=== PATIENT | female | born 1985 | race Caucasian/White ===

== ENCOUNTER 2022-04-18 06:48 | Day surgery (SDC) | payer BC ==
[2022-04-18] MEDS ORDERED: Dextrose 5%-Lactated Ringers 1,000 ML IV SCH (07:30)
== END 2022-04-18 10:52 | disposition home or self-care (01) ==
LOC: JP.SDS 06:48
PROVIDERS: ATTEND Surgery
DX: K31.6 Fistula of stomach and duodenum (principal); R63.5 Abnormal weight gain; G47.33 Obstructive sleep apnea (adult) (pediatric); Z93.1 Gastrostomy status; Z79.899 Other long term (current) drug therapy
CPT/HCPCS: 43239; 87081; J7121

== ENCOUNTER 2022-07-31 14:29 | Inpatient (IN) | payer BC ==
[2022-08-04] MEDS ORDERED: Acetaminophen 500 MG Tab PO ONE (07:45)
[2022-08-04] MEDS ORDERED: Scopolamine 1.5 MG Transdermal Patch TOP ONE (07:45)
[2022-08-04] MEDS ORDERED: Celecoxib 200 MG Cap PO ONE (07:45)
[2022-08-04] MEDS ORDERED: Dextrose 5%-Lactated Ringers 1,000 ML IV SCH (08:00)
[2022-08-04] MEDS ORDERED: Naloxone 0.4 MG/ML SDV IV PRN (08:00)
[2022-08-04] MEDS ORDERED: Amphetamine/Dextroamphetamine Salts 10 MG Tab PO ONE (08:45)
[2022-08-04] MEDS ORDERED: Scopolamine 1.5 MG Transdermal Patch TOP SCH (09:00)
[2022-08-04] MEDS ORDERED: cefOXitin 2 GM in Sodium Chloride 0.9% 50 ML IV ONE (09:00)
[2022-08-04] MEDS ORDERED: Ketamine 19 MG in Sodium Chloride 0.9% 19.81 ML IV SCH (09:15)
[2022-08-04] MEDS ORDERED: Ketamine 500 MG/5 ML MDV IV SCH (09:15)
[2022-08-04] MEDS ORDERED: Dexamethasone 4 MG/ML SDV ONE (10:57)
[2022-08-04] MEDS ORDERED: Propofol 200 MG/20 ML SDV ONE (10:57)
[2022-08-04] MEDS ORDERED: Rocuronium 50 MG/5 ML Vial ONE (10:57)
[2022-08-04] MEDS ORDERED: Glycopyrrolate 0.2 MG/ML 5 ML MDV ONE (10:57)
[2022-08-04] MEDS ORDERED: fentaNYL 250 MCG/5 ML SDV ONE (10:57)
[2022-08-04] MEDS ORDERED: Neostigmine Methylsulfate 1 MG/ML 5 ML Syringe ONE (10:57)
[2022-08-04] MEDS ORDERED: Succinylcholine 200 MG/10 ML MDV ONE (10:57)
[2022-08-04] MEDS ORDERED: Ondansetron 4 MG/2 ML SDV ONE (10:57)
[2022-08-04] MEDS ORDERED: Meropenem 500 MG SDV ONE (12:37)
[2022-08-04] MEDS: HYDROmorphone/Normal Saline 6 MG/30 ML PCA Vial IV PRN ×2 (13:56→22:14)
[2022-08-04] MEDS ORDERED: fentaNYL 100 MCG/2 ML SDV ONE (14:53)
[2022-08-04] MEDS ORDERED: hydrOXYzine HCL 100 MG/2 ML SDV IM ONE (15:15)
[2022-08-04] MEDS ORDERED: Metoclopramide 10 MG/2 ML SDV IVPUSH PRN (16:00)
[2022-08-04] MEDS ORDERED: diphenhydrAMINE 50 MG/ML SDV IVPUSH PRN (16:00)
[2022-08-04] MEDS ORDERED: Labetalol 20 MG/4 ML Syringe IVPUSH PRN (16:00)
[2022-08-04] MEDS ORDERED: Ondansetron 4 MG/2 ML SDV IVPUSH PRN (16:00)
[2022-08-04] MEDS ORDERED: hydrOXYzine HCL 100 MG/2 ML SDV IM PRN (16:00)
[2022-08-04] MEDS ORDERED: Acetaminophen 500 MG Tab PO PRN (16:00)
[2022-08-04] MEDS ORDERED: Pantoprazole 40 MG Vial IVPUSH SCH (16:00)
[2022-08-04] MEDS: cefOXitin 2 GM in Sodium Chloride 0.9% 50 ML IV SCH (17:06)
[2022-08-04] MEDS: MVI, Adult with Vitamin K 10 ML, Thiamine 200 MG, Zinc/Copper/Manganese/Selenium 1 ML i... IV SCH ×4 (17:07)
[2022-08-04] MEDS: Acetaminophen 500 MG Tab PO SCH (17:08)
[2022-08-04] MEDS: Heparin Sodium 5,000 Units/ML Vial SUBCUT SCH (17:08)
[2022-08-04] MEDS: Dextrose 5%-Lactated Ringers 1,000 ML IV SCH (22:06)
[2022-08-05] MEDS: cefOXitin 2 GM in Sodium Chloride 0.9% 50 ML IV SCH ×4 (00:21→17:56)
[2022-08-05] MEDS: Acetaminophen 500 MG Tab PO SCH ×3 (00:21→16:03)
[2022-08-05] MEDS ORDERED: Iopamidol 612 MG/ML 50 ML SDV PO STA (00:34)
[2022-08-05] MEDS: Heparin Sodium 5,000 Units/ML Vial SUBCUT SCH ×2 (06:03→17:56)
[2022-08-05] MEDS: Dextrose 5%-Lactated Ringers 1,000 ML IV SCH (06:08)
[2022-08-05] MEDS ORDERED: Dextrose 5%-Lactated Ringers 1,000 ML IV SCH (07:00)
[2022-08-05] MEDS ORDERED: Ondansetron 4 MG Tab.DIS PO PRN (07:00)
[2022-08-05] MEDS: Levothyroxine 100 MCG Tab PO SCH (07:31)
[2022-08-05] MEDS: SCOPOLAMINE PATCH CHECK TOP SCH (08:59)
[2022-08-05] MEDS: Celecoxib 200 MG Cap PO SCH ×2 (08:59→22:30)
[2022-08-05] MEDS: Cyclobenzaprine 10 MG Tab PO PRN ×2 (11:55→22:30)
[2022-08-05] MEDS: Pantoprazole 40 MG Delayed-Release Granules 1 Packet PO SCH (16:03)
[2022-08-05] MEDS: MVI, Adult with Vitamin K 10 ML, Thiamine 200 MG, Zinc/Copper/Manganese/Selenium 1 ML i... IV SCH ×4 (16:03)
[2022-08-05] MEDS: HYDROmorphone/Normal Saline 6 MG/30 ML PCA Vial IV PRN (19:54)
[2022-08-06] MEDS: Acetaminophen 500 MG Tab PO SCH ×4 (00:50→23:51)
[2022-08-06] MEDS: cefOXitin 2 GM in Sodium Chloride 0.9% 50 ML IV SCH (00:51)
[2022-08-06] MEDS: Heparin Sodium 5,000 Units/ML Vial SUBCUT SCH ×2 (06:03→18:00)
[2022-08-06] MEDS: Levothyroxine 100 MCG Tab PO SCH (07:45)
[2022-08-06] MEDS: oxyCODONE 5 MG Tab PO PRN ×3 (07:45→23:52)
[2022-08-06] MEDS ORDERED: Cyanocobalamin (Vitamin B12) 1,000 MCG/ML SDV IM ONE (09:00)
[2022-08-06] MEDS: SCOPOLAMINE PATCH CHECK TOP SCH (09:05)
[2022-08-06] MEDS: Celecoxib 200 MG Cap PO SCH ×2 (09:06→21:06)
[2022-08-06] MEDS: Cyclobenzaprine 10 MG Tab PO PRN ×2 (11:34→21:05)
[2022-08-06] MEDS: Pantoprazole 40 MG Delayed-Release Granules 1 Packet PO SCH (15:58)
[2022-08-07] MEDS: Heparin Sodium 5,000 Units/ML Vial SUBCUT SCH ×2 (05:18→17:16)
[2022-08-07] MEDS: hydrOXYzine HCl 25 MG Tab PO PRN ×2 (07:43→18:04)
[2022-08-07] MEDS: Acetaminophen 500 MG Tab PO SCH ×2 (07:43→17:16)
[2022-08-07] MEDS: Levothyroxine 100 MCG Tab PO SCH (07:44)
[2022-08-07] MEDS: Celecoxib 200 MG Cap PO SCH ×2 (08:59→20:55)
[2022-08-07] MEDS: Docusate Sodium 100 MG Cap PO SCH ×2 (08:59→20:55)
[2022-08-07] MEDS: Bisacodyl 5 MG Tab PO SCH ×2 (09:00→20:55)
[2022-08-07] MEDS: Cyclobenzaprine 10 MG Tab PO PRN ×2 (12:02→20:55)
[2022-08-07] MEDS: Pantoprazole 40 MG Delayed-Release Granules 1 Packet PO SCH (17:16)
[2022-08-08] MEDS: hydrOXYzine HCl 25 MG Tab PO PRN ×2 (00:17→05:10)
[2022-08-08] MEDS: Acetaminophen 500 MG Tab PO SCH ×2 (00:18→07:38)
[2022-08-08] MEDS: Heparin Sodium 5,000 Units/ML Vial SUBCUT SCH (05:10)
[2022-08-08] MEDS: Levothyroxine 100 MCG Tab PO SCH (07:37)
[2022-08-08] MEDS: Bisacodyl 5 MG Tab PO SCH (09:17)
[2022-08-08] MEDS: Docusate Sodium 100 MG Cap PO SCH (09:17)
[2022-08-08] MEDS: Celecoxib 200 MG Cap PO SCH (09:17)
[2022-08-08] MEDS: Cyclobenzaprine 10 MG Tab PO PRN (09:18)
== END 2022-08-08 10:26 | disposition home or self-care (01) | DRG 220 ==
LOC: JP.MS 08-04 09:01 → EDSTATUS 08-04 09:15 → JP.MS 08-04 14:30
PROVIDERS: ADMIT Surgery; ATTEND Surgery
PROC: 0DB60ZZ Excision of Stomach, Open Approach (ICD-10-PCS; principal; 2022-08-04)
PROC: 0DB40ZZ Excision of Esophagogastric Junction, Open Approach (ICD-10-PCS; 2022-08-04)
PROC: 0D150ZA Bypass Esophagus to Jejunum, Open Approach (ICD-10-PCS; 2022-08-04)
PROC: 0BQT0ZZ Repair Diaphragm, Open Approach (ICD-10-PCS; 2022-08-04)
DX: K31.6 Fistula of stomach and duodenum (principal); E66.01 Morbid (severe) obesity due to excess calories; K44.0 Diaphragmatic hernia with obstruction, without gangrene; F98.8 Other specified behavioral and emotional disorders with onset usually occurring in childhood and adolescence; D64.9 Anemia, unspecified; F41.9 Anxiety disorder, unspecified; F32.A Depression, unspecified; G47.30 Sleep apnea, unspecified; E03.9 Hypothyroidism, unspecified; Z90.49 Acquired absence of other specified parts of digestive tract; Z90.89 Acquired absence of other organs; Z79.890 Hormone replacement therapy; Z79.899 Other long term (current) drug therapy; Z98.84 Bariatric surgery status; Z88.8 Allergy status to other drugs, medicaments and biological substances; Z87.891 Personal history of nicotine dependence; Z68.38 Body mass index [BMI] 38.0-38.9, adult
CPT/HCPCS: 36415; 74240; 82728; 82947; 84443; 86850; 86900; 86901; 88307; 93005; A9270-GY; C9113; J0171; J0330; J0694; J1100; J1170; J1644; J2185; J2405; J2704; J2710; J2795; J3010; J3410; J3411; J3420; J3490; J7121; Q9967

== ENCOUNTER 2022-10-16 07:00 | Day surgery (SDC) | payer BC ==
[~2022-10-16 07:00] MED LIST: Lactated Ringers 1,000 ML IV SCH; Midazolam 1 MG/ML 2 ML SDV ONE; Propofol 200 MG/20 ML SDV ONE; fentaNYL 50 MCG/ML SDV ONE
[2022-10-16] MEDS ORDERED: Glycopyrrolate 0.2 MG/ML 2 ML SDV IVPUSH ONE (07:15)
[2022-10-16] MEDS ORDERED: Cyanocobalamin (Vitamin B12) 1,000 MCG/ML SDV IM ONE (07:45)
[2022-10-16] MEDS ORDERED: MVI, Adult with Vitamin K 10 ML, Thiamine 200 MG, Chromium/Copper/Mang/Selen/Zn 1 ML in... IV SCH ×4 (08:30)
== END 2022-10-16 12:00 | disposition home or self-care (01) ==
LOC: JP.SDS 07:00
PROVIDERS: ATTEND Surgery
DX: K94.23 Gastrostomy malfunction (principal); R13.10 Dysphagia, unspecified; Z79.899 Other long term (current) drug therapy; Z91.048 Other nonmedicinal substance allergy status
CPT/HCPCS: 81025; C1726; J2250; J2704; J3010; J3411; J3420; J7120

== ENCOUNTER 2022-12-02 07:09 | Day surgery (SDC) | payer BC ==
[2022-12-02] MEDS ORDERED: Midazolam 1 MG/ML 2 ML SDV ONE (07:21)
[2022-12-02] MEDS ORDERED: Propofol 200 MG/20 ML SDV ONE (07:21)
[2022-12-02] MEDS ORDERED: fentaNYL 100 MCG/2 ML SDV ONE (07:21)
[2022-12-02] MEDS ORDERED: Lactated Ringers 1,000 ML IV ONE (07:45)
[2022-12-02] MEDS ORDERED: Cyanocobalamin (Vitamin B12) 1,000 MCG/ML SDV IM ONE (08:00)
[2022-12-02] MEDS ORDERED: Glycopyrrolate 0.2 MG/ML 2 ML SDV IVPUSH ONE (08:00)
[2022-12-02] MEDS ORDERED: MVI, Adult with Vitamin K 10 ML, Thiamine 200 MG, Zinc/Copper/Manganese/Selenium 1 ML i... IV ONE ×4 (08:45)
[2022-12-02] MEDS ORDERED: Dexamethasone 4 MG/ML SDV ONE (11:00)
== END 2022-12-02 12:29 | disposition home or self-care (01) ==
LOC: JP.SDS 07:09
PROVIDERS: ATTEND Surgery
DX: K91.89 Other postprocedural complications and disorders of digestive system (principal); K56.699 Other intestinal obstruction unspecified as to partial versus complete obstruction; F32.A Depression, unspecified; E03.9 Hypothyroidism, unspecified; Z98.890 Other specified postprocedural states; Z98.0 Intestinal bypass and anastomosis status
CPT/HCPCS: 43245; 76000; 81025; C1726; J1100; J2250; J2704; J3010; J3411; J3420; J3490; J7120